=== PATIENT | male | born 1990 | race African-American/Black ===

== ENCOUNTER 2023-07-28 10:26 | Emergency (ER) | payer OTHER ==
[2023-07-28 10:32] VITALS: BP 118/70; PULSE 76; RESP 18; TEMP 98.8; BMI 28.7
== END 2023-07-28 12:28 | disposition home or self-care (01) ==
LOC: JERFT 10:26
DX: S92.502A Displaced unspecified fracture of left lesser toe(s), initial encounter for closed fracture (principal); V21.41XA Electric (assisted) bicycle driver injured in collision with pedal cycle in traffic accident, initial encounter
CPT/HCPCS: 73630-TC-LT; 99283-25